=== PATIENT | female | born 1960 | race Caucasian/White ===

== ENCOUNTER 2018-11-13 15:18 | Outpatient (CLI) | payer OTHER ==
--- NOTE | 2018-11-14 05:04 | MRI Report ---
Reason: RT HIP PAIN, LOW BACK PAIN Procedure Date: 11/13/2018 Accession Number: [id number] / [id number] Procedure: MRI - Lumbar Spine W/O CPT Code: FULL RESULT: EXAM: MRI LUMBAR SPINE WITHOUT CONTRAST EXAM DATE: 11/13/2018 04:54 PM CLINICAL HISTORY: Right hip pain, low back pain. COMPARISON: ABDOMEN/PELVIS W/ 01/24/2016 10:12 AM. TECHNIQUE: Multiplanar, multisequence T1-weighted and fluid-sensitive sequences of the lumbar spine from T11 to S1 without contrast. Other: None. FINDINGS: Spinal Canal: The conus terminates at L2. The conus medullaris and cauda equina are unremarkable. Alignment: There is no spondylolisthesis. Bone Marrow: Five [id number] lumbar vertebral bodies are confirmed on the CT. No gross fractures or bone lesions. No bone marrow replacement. Disk Levels/Facets: T11-T12: Unremarkable on sagittal images. T12-L1: Unremarkable. L1-L2: Unremarkable. L2-L3: A small central extrusion is present with superior migration resulting in mild spinal canal stenosis. The foramina are patent. L3-L4: Facet arthropathy and ligamentum flavum infolding result in mild spinal canal stenosis. Bilateral foraminal protrusions are present resulting in mild bilateral foraminal narrowing. L4-L5: Mild bilateral facet arthropathy is present with trace fluid in the facet joints. Small bilateral foraminal protrusions are also present resulting in mild bilateral foraminal narrowing. The spinal canal is patent. L5-S1: Disk height loss and facet arthropathy result in mild bilateral foraminal narrowing. The spinal canal is patent. Musculature: Normal. No edema or fatty atrophy. Other: A right renal cyst is again noted. IMPRESSION: 1. Normal conus medullaris and cauda equina. 2. No abnormal bone marrow edema. 3. Mild degenerative changes in the mid to lower lumbar spine are present without high-grade spinal canal or foraminal stenosis. Comment: The following findings are so common in adults without low back pain that while we report their presence, they must be interpreted with caution and in the context of the clinical situation. (Reference Brandonk et al, Spine 2001) Prevalence of findings in patients without low back pain: Disk degeneration (any evidence): 92% Disk desiccation/T2 signal loss: 83% Disk height loss: 56% Disk bulge: 64% Disk protrusion: 32% Annular tear/high intensity zone: 38% RADIA
== END 2018-11-13 15:19 | disposition home or self-care (01) ==
LOC: DI 15:18
PROVIDERS: ATTEND Family Medicine
DX: M25.551 Pain in right hip (principal); M54.5 Low back pain
CPT/HCPCS: 72148

== ENCOUNTER 2018-12-08 16:43 | Outpatient (CLI) | payer OTHER ==
--- NOTE | 2018-12-09 22:42 | MRI Report ---
Reason: RADICULOPATHY CERVICAL REGION Procedure Date: 12/08/2018 Accession Number: [id number] / [id number] Procedure: MRI - Cervical Spine W/O CPT Code: FULL RESULT: EXAM: MRI CERVICAL SPINE WITHOUT CONTRAST EXAM DATE: 12/08/2018 05:23 PM. CLINICAL HISTORY: Cervical radiculopathy. COMPARISONS: None. TECHNIQUE: Multiplanar, multisequence T1-weighted and fluid-sensitive sequences of the cervical spine without contrast. Other: None. FINDINGS: Neurologic Structures: The visualized posterior fossa structures are unremarkable. No signal abnormality in the visualized spinal cord. Alignment: Grade 1 anterolisthesis at C3-C4 and C4-C5 measure 1-2 mm. Retrolisthesis at C5-C6 and C6-C7 measure 2-3 mm. Bone Marrow: Mild type I Modic endplate changes are noted at C6-C7. Type II Modic endplate changes with a chronic appearing Schmorl's node is noted at C5-C6. Interspace Levels/Facets: C1-C2: Unremarkable. C2-C3: Left-sided facet arthropathy is present without spinal canal or foraminal stenosis. C3-C4: Bilateral facet arthropathy is present without spinal canal or foraminal stenosis. C4-C5: A central extrusion with superior migration abuts the ventral spinal cord and causes flattening. However, no spinal cord impingement is seen. The foramina are patent. C5-C6: A posterior disk osteophyte complex results in moderate spinal canal stenosis with mild impingement of the spinal cord. There is severe left and moderate right foraminal narrowing due to uncovertebral hypertrophy. C6-C7: A posterior disk osteophyte complex results in mild spinal canal stenosis with flattening of the ventral spinal cord but without spinal cord impingement. Mild bilateral foraminal narrowing is present due to uncovertebral hypertrophy. C7-T1: Unremarkable. Musculature: Normal. No edema or fatty atrophy. Other: The paravertebral and prevertebral soft tissues are normal. IMPRESSION: 1. Normal cervical spinal cord signal intensity. 2. Type I Modic endplate changes are present at C6-C7. 3. Retrolisthesis with a posterior disk osteophyte complex at C5-C6 causes moderate spinal canal stenosis with mild impingement of the spinal cord. 4. No spinal cord impingement is seen at any other cervical level. 5. Severe left foraminal narrowing is present at C5-C6 due to uncovertebral hypertrophy. RADIA
== END 2018-12-08 16:44 | disposition home or self-care (01) ==
LOC: DI 16:43
PROVIDERS: ATTEND Family Medicine
DX: M50.221 Other cervical disc displacement at C4-C5 level (principal); M47.812 Spondylosis without myelopathy or radiculopathy, cervical region; M43.12 Spondylolisthesis, cervical region
CPT/HCPCS: 72141

== ENCOUNTER 2019-02-26 13:53 | Outpatient (CLI) | payer OTHER ==
[2019-02-26 14:35] LABS: ALBUMIN 4.5 g/dL (3.2-5.5); ALKALINE PHOSPHATASE 63 IU/L (42-121); ALT ALANINE AMINOTRANSFERASE 42 IU/L (10-60); AST ASPARTATE AMINOTRANSFERASE 29 IU/L (10-42); BILIRUBIN,DIRECT 0.1 mg/dL (0.1-0.5); BILIRUBIN,TOTAL 0.7 mg/dL (0.2-1.0); CHOL/HDL RATIO 4.4 (<4.4); CHOLESTEROL 271 mg/dL; HDL CHOLESTEROL 62 mg/dL; LDL CHOLESTEROL,CALCULATED 185 mg/dL; VLDL CHOLESTEROL 24 mg/dL
[2019-02-26 14:37] LABS: HCG,QUALITATIVE BLOOD NEGATIVE
== END 2019-02-26 13:54 | disposition home or self-care (01) ==
LOC: LAB 13:53
PROVIDERS: ATTEND Physician Assistant Medical
DX: Z79.899 Other long term (current) drug therapy (principal); L70.8 Other acne
CPT/HCPCS: 36415; 80061; 80076; 83721; 84703

== ENCOUNTER 2019-04-12 11:02 | Outpatient (CLI) | payer OTHER ==
[2019-04-12 11:54] LABS: HCG,QUALITATIVE BLOOD NEGATIVE
[2019-04-12 11:55] LABS: ALBUMIN 4.3 g/dL (3.2-5.5); ALKALINE PHOSPHATASE 53 IU/L (42-121); ALT ALANINE AMINOTRANSFERASE 27 IU/L (10-60); AST ASPARTATE AMINOTRANSFERASE 25 IU/L (10-42); BILIRUBIN,DIRECT 0.2 mg/dL (0.1-0.5); BILIRUBIN,TOTAL 0.9 mg/dL (0.2-1.0); CHOL/HDL RATIO 3.6 (<4.4); CHOLESTEROL 257 mg/dL; HDL CHOLESTEROL 71 mg/dL; LDL CHOLESTEROL,CALCULATED 170 mg/dL; LDL/HDL RATIO 2.4 (<4.4); TOTAL PROTEIN 7.9 g/dL (6.7-8.2); VLDL CHOLESTEROL 16 mg/dL
== END 2019-04-12 11:03 | disposition home or self-care (01) ==
LOC: LAB 11:02
PROVIDERS: ATTEND Physician Assistant Medical
DX: L70.8 Other acne (principal); Z79.899 Other long term (current) drug therapy
CPT/HCPCS: 36415; 80061; 80076; 83721; 84703

== ENCOUNTER 2019-05-04 11:12 | Outpatient (CLI) | payer OTHER ==
[2019-05-04 11:56] LABS: ALBUMIN 4.1 g/dL (3.2-5.5); ALKALINE PHOSPHATASE 68 IU/L (42-121); ALT ALANINE AMINOTRANSFERASE 33 IU/L (10-60); AST ASPARTATE AMINOTRANSFERASE 30 IU/L (10-42); BILIRUBIN,DIRECT 0.1 mg/dL (0.1-0.5); BILIRUBIN,TOTAL 0.7 mg/dL (0.2-1.0); CHOL/HDL RATIO 3.9 (<4.4); CHOLESTEROL 254 mg/dL; HDL CHOLESTEROL 65 mg/dL; LDL CHOLESTEROL,CALCULATED 173 mg/dL; LDL/HDL RATIO 2.7 (<4.4); TOTAL PROTEIN 7.8 g/dL (6.7-8.2); VLDL CHOLESTEROL 16 mg/dL
[2019-05-04 11:57] LABS: HCG,QUALITATIVE BLOOD NEGATIVE
== END 2019-05-04 11:13 | disposition home or self-care (01) ==
LOC: LAB 11:12
PROVIDERS: ATTEND Physician Assistant Medical
DX: L70.8 Other acne (principal); Z79.899 Other long term (current) drug therapy
CPT/HCPCS: 36415; 80061; 80076; 83721; 84703

== ENCOUNTER 2019-05-13 18:57 | Outpatient (CLI) | payer OTHER | END 2019-05-13 18:58 | disposition EMS.NT | LOC: EMS 18:57 | PROVIDERS: ATTEND Surgery | DX: S00.81XA Abrasion of other part of head, initial encounter (principal); Y09 Assault by unspecified means ==

== ENCOUNTER 2019-06-08 13:45 | Outpatient (CLI) | payer OTHER ==
[2019-06-08 14:40] LABS: ALBUMIN 4.1 g/dL (3.2-5.5); ALKALINE PHOSPHATASE 75 IU/L (42-121); ALT ALANINE AMINOTRANSFERASE 34 IU/L (10-60); AST ASPARTATE AMINOTRANSFERASE 29 IU/L (10-42); BILIRUBIN,TOTAL 0.7 mg/dL (0.2-1.0); CHOL/HDL RATIO 4.5 (<4.4); CHOLESTEROL 271 mg/dL; HDL CHOLESTEROL 60 mg/dL; LDL CHOLESTEROL,CALCULATED 184 mg/dL; LDL/HDL RATIO 3.1 (<4.4); VLDL CHOLESTEROL 27 mg/dL
[2019-06-08 14:41] LABS: BILIRUBIN,DIRECT < 0.1 mg/dL (0.1-0.5)
[2019-06-08 14:44] LABS: HCG,QUALITATIVE BLOOD NEGATIVE
== END 2019-06-08 13:46 | disposition home or self-care (01) ==
LOC: LAB 13:45
PROVIDERS: ATTEND Physician Assistant Medical
DX: L70.8 Other acne (principal); Z79.899 Other long term (current) drug therapy
CPT/HCPCS: 36415; 80061; 80076; 83721; 84703